=== PATIENT | male | born 1965 | race Caucasian/White ===

== ENCOUNTER 2023-11-16 10:46 | Outpatient (AMB) | payer OTHER, SELFPAY ==
--- NOTE | 2023-11-16 10:52 | MHC.OFFVIS ---
Vital Signs 11/16/23 10:54 Height 6 ft Weight 228 lb BMI 30.9 BP 119/80 Blood Pressure Location Lt brachial Position Sitting Pulse 56 Intake Visit Reasons: Colonoscopy Screening Intake Note: Patient new consult for 1st pre colonoscopy screening. Patient denies any GI issues. Energy Conservation Representative Required: No Accompanied by: Self / Same As Patient Allergies No Known Allergies Allergy (Verified 11/16/23 10:52) Medication List - Last Reconciled 11/16/23 by Anastasia Velazquez PA-C No Known Home Meds HPI Comments Details: A 58-year-old male referred for index screening colonoscopy- He has no known family history of GI cancer He has no GI complaints He has a good appetite, normal bowel pattern No cardiac or respiratory issues He takes no prescribed medications No nausea, vomiting, hematemesis, hematochezia fever chills PFSH Surgical History History of vasectomy Hx of removal of cyst Family History Mother Asthma Diabetes Social History (Updated 11/16/23 @ 11:32 by Anastasia Velazquez PA-C) Household Members: Family Household Members Other:: , adult children Unable to assess alcohol history related to: Unknown Comment: Social Patient Tobacco Use Status: Former Tobacco user Tobacco use type: Cigar Current occupational status: employed and retired Current occupation: Retired, works full-time Review of Systems Const Details: All systems reviewed and are negative Denies as per HPI, Denies chills, Denies daytime sleepiness, Denies difficulty sleeping, Denies excessive sweating, Denies fatigue, Denies fever(s), Denies frequent falls, Denies headache(s), Denies increased appetite, Denies lethargy, Denies malaise, Denies night sweats, Denies poor appetite, Denies snoring, Denies stops breathing during sleep, Denies weakness, Denies weight gain, Denies weight loss and Denies other ENT Denies headache(s) Resp Denies snoring Neuro Denies frequent falls, Denies headache(s) and Denies weakness Endo Denies excessive sweating and Denies fatigue Physical Exam Vital Signs: Last Vital Signs Pulse 56 11/16/23 10:54 BP 119/80 11/16/23 10:54 BMI result Body Mass Index 30.9 Very pleasant 58-year-old male alert and oriented no acute distress Anicteric Cardiovascular, regular rate rhythm no murmurs no Lungs, clear to auscultation bilaterally no wheezes rales or rhonchi Abdomen, soft positive bowel sounds no rebound guarding CVA Extremities without edema clubbing or cyanosis Skin without rash Assessment & Plan Assessment & Plan (1) Encounter for screening colonoscopy: Comment: Index screening colonoscopy Discussed procedure, rare risks, need for escort present Code(s): Z12.11 - Encounter for screening for malignant neoplasm of colon Category: Medical Plan: Index screening Plan Index screening colonoscopy with Dr. Salvatore Storade prep Orders: Orders Colonoscopy - GI Use Only Today Z12.11 - Encounter for screening for malignant neoplasm of colon Medications: New bisacodyl (Dulcolax (bisacodyl)) Day before procedure @ 12 noon Take 4 tablets by mouth followed by large glass of water 20 mg (4 x 5 mg) PO ONCE 1 day PRN 4 tabs 0RF colonoscopy prep Z12.11 - Encounter for screening for malignant neoplasm of colon polyethylene glycol 3350 (Miralax) Take as directed by mouth the day before your procedure. 238 grams PO ONCE 1 day PRN 238 grams 0RF laxative effect Patient Instructions: Index screening colonoscopy with Dr. Salvatore Bueno Gatorade prep, reviewed literature to begin Encouraged to call with questions or concerns Coding Level of Care Code New Pt Level 3 (29810) Diagnoses Encounter for screening colonoscopy Z12.11 Time Spent (min) 20
[2023-11-16 10:54] VITALS: BP 119/80; PULSE 56; BMI 30.9
== END 2023-11-16 11:34 | disposition home or self-care (01) ==
PROVIDERS: PCP Internal Medicine; Visit Provider Physician Assistant
DX: Z01.818 Encounter for other preprocedural examination (principal); Z12.11 Encounter for screening for malignant neoplasm of colon
CPT/HCPCS: S0285

== ENCOUNTER → 2023-11-16 10:46 | Outpatient (BNVA) | payer OTHER, SELFPAY | PROVIDERS: PCP Internal Medicine; Visit Provider Physician Assistant ==

== ENCOUNTER 2024-03-29 06:19 | Day surgery (SDC) | payer OTHER, SELFPAY ==
[2024-03-29 06:22] VITALS: BMI 31.2
[2024-03-29 06:43] VITALS: BP 130/92; PULSE 64; RESP 16; TEMP 36.2; O2SAT 94
[2024-03-29] MEDS: Lactated Ringers 1,000 ML 80 ML IVCONT (06:48)
--- NOTE | 2024-03-29 07:13 | P.CONAN_ITS ---
HPI - Anesthesia Eval Consult details Narrative: 58 yo M presenting for colonoscopy [facility] Active Problems Active Problems: All Active Problems Encounter for screening colonoscopy (Acute) Past Medical History Medical History (Updated 03/29/24 @ 06:49 by Cassie Busby RN) LUIS ANGEL on CPAP Family History Family History Mother Asthma Diabetes Family history of problems with anesthesia: No Surgical History Surgical History History of vasectomy Hx of removal of cyst History of Problems with Anesthesia: No Social History Social History (Updated 11/16/23 @ 11:32 by Anastasia Velazquez PA-C) Household Members: Family Household Members Other:: , adult children Unable to assess alcohol history related to: Unknown Comment: Social Patient Tobacco Use Status: Former Tobacco user Tobacco use type: Cigar Use of substances other than those prescribed or required for medical reasons: No Have you been hit, kicked, punched, or otherwise hurt by someone within the past year? If so, by whom?: No Are you DNR?: No Advance Directives: No Advance Directives Information Provided: Yes Recently lost weight without trying: No Nutrition Risks: No Nutritional Risk Poor oral hygiene: No Current occupational status: employed and retired Current occupation: Retired, works full-time Meds Allergies Allergy/AdvReac Type Severity Reaction Status Date / Time No Known Allergies Allergy Verified 03/29/24 06:28 Active Medications: Current Medications Lactated Ringer's (Lr) 1,000 mls @ 80 mls/hr IVCONT .[id number] [facility] Last Admin: 03/29/24 06:48 Dose: 80 mls/hr Home Medications ?Medication ?Instructions ?Recorded ?Confirmed ?Last Taken ?Type [place] 3 03/29/24 03/26/24 History Vitamin C 03/29/24 03/29/24 03/26/24 History Exam Exam Date and Time: 03/29/24 0710 Height,Weight and Vital Signs: Height 6 ft Weight 104.326 kg Last Vital Signs Temp 97.2 F 03/29/24 06:43 Pulse 64 03/29/24 06:43 Resp 16 03/29/24 06:43 BP 130/92 H 03/29/24 06:43 Pulse Ox 94 03/29/24 06:43 O2 Del Method Room Air 03/29/24 06:43 Airway Mallampati Class: I TM Dist: >3cm Neck ROM: Full Loose/Missing/Broken Teeth: No (patient denies any loose or broken teeth) Heart: S1S2 Lungs: CTAB Assessment and Plan Assessment Anesthesia Assessment: Anesthesia Plan Discussed and Chart Reviewed Final Anesthetic Review Family History of Problems with Anesthesia: No History of Problems with Anesthesia: No NPO: Yes ASA Class: I Final Preanesthetic Review: No Changes in Pt Med Stat, Meds/Allgs Chart Reviewed, Consent Obtained/Reviewed and Anes Risks/Benef Reviewed Patient Risk: Low Procedure Risk: Low Anesthetic Plan Anesthetic Plan: MAC: and Agree w/ Assess. and Plan Disposition: Standard PACU
--- NOTE | 2024-03-29 07:59 | MHC.SHP ---
Pre-Procedural Eval Section A - 24 Hr Update-Section A only Date of Service: 03/29/24 Section B - Complete if H&P > 30 days Chief Complaint: Encounter for screening for malignant neoplasm of Details of Present Illness: History of vasectomy Hx of removal of cyst Family History Mother Asthma Diabetes Allergies: Allergies Allergy/AdvReac Type Severity Reaction Status Date / Time No Known Allergies Allergy Verified 03/29/24 06:28 Review of Systems Review of Systems Comment: Ten point ROS negative Exam Exam Comment: Gen appear: No acute distress HEENT: no icterus Chest: No overt resp distress Abd: soft, nontender, nondistended Psych: Stable affect, answering questions appropriately Neuro: A/Ox3 noted to move all extremities spontaneously Ext: no peripheral edema Plan Diagnosis/Plan: Unchanged I have reviewed the history and physical and performed a pertinent physical examination on my patient. No changes have occurred unless specified. Time Spent With Patient Time: Total time managing care of this patient today ____ minutes.
--- NOTE | 2024-03-29 08:29 | P.OPN-COLO_ITS ---
Colonoscopy Operative Note Operative Note Date of Service: 03/29/24 Narrative: Procedure: Colonoscopy Indication: Screening Endoscopist: Nupur Chase MD Anesthesia Provider: Kehinde Kingsley CRNA Anesthesia type: MAC Instrument: Olympus [id number]-[id number] Consent: Indication, risks vs benefits, and alternatives were discussed with the patient who gave written informed consent to proceed. EKG, pulse, pulse oximetry and blood pressure were monitored throughout the procedure. Please see anesthesia flowsheet. Procedure: The patient was brought to the procedure room and placed in the left lateral decubitus position. IV medications were administered by the anesthesia provider in attendance. A digital rectal exam was performed which was normal. A distal attachment cap was affixed to the tip of the colonoscope which was then inserted through the anus and advanced through the colon to the cecum at 85 cm,and terminal ileum. Appendiceal orifice and ileocecal valve were identified. Mucosa was carefully examined under high definition white light as the instrument was slowly withdrawn in a retrograde panoramic fashion. Retroflexion was performed in ascending colon and rectum. The procedure was not difficult. There were no immediate obvious complications. The quality of the prep was BBPS: 2+3+2 = adequate Withdrawal time 13 minutes. Limitations: No limitations. Findings: Mucosa: Normal to cecum and terminal ileum. Protruding lesions: * 1 sessile polyp of size 2 mm in descending colon. Cold snare polypectomy was performed. The polyp was completely removed and retrieved. * Medium internal hemorrhoids without stigmata of recent bleeding. Impression: 1. Normal colon and terminal mucosa 2. Total of 1 polyp removed f 3. Internal hemorrhoids Recommendations: - Follow path results. - Repeat colonoscopy in 7-10 years if polyp is an adenoma.
[2024-03-29 08:32] VITALS: BP 109/65; PULSE 60; RESP 12; TEMP 36.1; O2SAT 93
[2024-03-29 08:52] VITALS: BP 119/72; PULSE 50; RESP 20; TEMP 36.6; O2SAT 98
== END 2024-03-29 09:12 | disposition home or self-care (01) ==
PROVIDERS: PCP Internal Medicine; Visit Provider Internal Medicine
PROC: 0DJD8ZZ Inspection of Lower Intestinal Tract, Via Natural or Artificial Opening Endoscopic (ICD-10-PCS; CPT 45378; principal; 2024-03-29 07:30)
DX: Z12.11 Encounter for screening for malignant neoplasm of colon (principal); D12.4 Benign neoplasm of descending colon; K64.8 Other hemorrhoids; G47.33 Obstructive sleep apnea (adult) (pediatric); Z99.89 Dependence on other enabling machines and devices; Z79.899 Other long term (current) drug therapy; Z98.52 Vasectomy status; Z87.891 Personal history of nicotine dependence
CPT/HCPCS: 45385; 88305; J2704

== ENCOUNTER → 2024-03-29 06:19 | Outpatient (BNV) | payer OTHER, SELFPAY | PROVIDERS: PCP Internal Medicine; Visit Provider Internal Medicine | DX: Z12.11 Encounter for screening for malignant neoplasm of colon (principal); D12.4 Benign neoplasm of descending colon; K64.8 Other hemorrhoids | CPT/HCPCS: 45385 ==

== ENCOUNTER → 2025-01-08 10:50 | Outpatient (BNV) | payer OTHER, SELFPAY | PROVIDERS: PCP Internal Medicine; Referring Provider Internal Medicine; Visit Provider Internal Medicine | DX: D72.819 Decreased white blood cell count, unspecified (principal) | CPT/HCPCS: 99204 ==

== ENCOUNTER 2025-01-14 12:40 | Outpatient (AMB) | payer OTHER, SELFPAY ==
--- NOTE | 2025-01-14 12:55 | A.OFFVIS_ITS ---
Vital Signs 01/14/25 13:02 Height 6 ft Weight 219 lb 5.759 oz BMI 29.7 BP 128/80 Blood Pressure Location Rt brachial Position Sitting Pulse 64 Pulse Source Pulse Oximeter Pulse Oximetry (%) 96 Oxygen Delivery Method Room Air Intake Visit Reasons: Obstructive sleep apnea Allergies No Known Allergies Allergy (Verified 01/14/25 13:06) HPI HPI Obstructive sleep apnea: Details: Kehinde is a pleasant 59 year old male, former minimal cigar smoker, quit 20+ years ago with underlying severe LUIS ANGEL. He was referred by PCP for management of LUIS ANGEL. He was previously under the care of [facility] sleep medicine but his provider retired and was never established with another provider. His last PSG was 09/2019 which revealed AHI 35.3, with mild nocturnal hypoxemia, <88% 6 minutes, lowest 81%. Recommendations were made for CPAP therapy, APAP mode with pressures 8-14 cmH20, with a nasal mask, which he has been using consistently with good effect since. He does report more noticeable leaking, questioning proper pressures, as he has lost 20+ lbs since his last sleep study. At this time, he denies any respiratory symptoms. [facility] Medical History (Updated 01/14/25 @ 12:57 by Cristin Jackson NP) Toe fracture, right Finger fracture, right LUIS ANGEL on CPAP Surgical History (Updated 01/08/25 @ 11:29 by Michelle Campbell MD) Status post right knee replacement History of vasectomy Hx of removal of cyst Family History Mother Asthma Diabetes Social History Household Members: Family Household Members Other:: , adult children Unable to assess alcohol history related to: Unknown Comment: Social Patient Tobacco Use Status: Former Tobacco user Tobacco use type: Cigar service: Yes Current occupational status: employed and retired Current occupation: Retired, works full-time Review of Systems Const Denies chills, Denies excessive sweating, Denies fever(s), Denies headache(s) and Denies night sweats Eyes Denies dry eyes, Denies irritation and Denies itchy eyes ENT Reports Normal hearing present, Denies headache(s), Denies nasal congestion, Denies nasal discharge, Denies post nasal drip and Denies sore throat Card Denies chest pain, Denies chest pain at rest, Denies chest pain with activity, Denies claudication, Denies leg edema, Denies dyspnea, Denies dyspnea on exertion, Denies orthopnea and Denies paroxysmal nocturnal dyspnea Resp Denies chest congestion, Denies cough, Denies excessive phlegm production, Denies pain on inspiration, Denies pain with cough, Denies dyspnea, Denies d yspnea on exertion, Denies stridor and Denies wheezing Musc Denies myalgias Neuro Reports Normal hearing present and Denies headache(s) Endo Denies excessive sweating Hernan/Lymph Denies lymphadenopathy Aller/Immun Denies itchy eyes, Denies seasonal rhinorrhea and Denies wheezing Physical Exam Vital Signs: Last Vital Signs Pulse 64 01/14/25 13:02 BP 128/80 01/14/25 13:02 Pulse Ox 96 01/14/25 13:02 Oxygen Delivery Method Room Air 01/14/25 13:02 BMI result Body Mass Index 29.7 Const General: cooperative, healthy appearing, comfortable, no acute distress, well developed and alert Orientation/consciousness: patient oriented x3 Limitations: no limitations HEENT Head: Yes normal to inspection, Yes normocephalic and Yes atraumatic Ears: hearing grossly normal bilaterally and external ears normal Eyes General: appearance normal, both eyes and all related structures Eyelids: Yes eyelids normal Sclerae: sclerae normal EOM: EOMs intact bilaterally Neck Neck: Yes normal visual inspection and Yes no lymphadenopathy Lymphatic: no lymphadenopathy noted Chest Chest palpation & inspection: normal inspection of the chest Resp Effort & Inspection: normal respiratory effort, able to speak in complete sentences, no audible wheezes, no cough, no stridor, not tachypneic, no tripod positioning and no use of accessory muscles Auscultation: clear to auscultation bilaterally Cardio Jugular venous distension: no JVD Rate: regular rate Rhythm: regular rhythm Skin Other: warm, dry General skin exam: no rashes or lesions noted Neuro General: patient oriented x3 Cranial nerves: Yes Normal hearing present Cognition (Neuro): normal cognition Gait exam (Neuro): Normal gait present Extrem General: Yes normal to inspection, Yes capillary refill normal, Yes no clubbing, cyanosis or edema and Yes no pedal edema Psych Appearance: grossly normal and well kempt Speech and movement: Normal speech and movement present and Clear speech present Affect: normal affect Attitude: cooperative Thought process: Normal thought process present Thought content: Normal thought content present Insight: Good insight present (Psych) Judgement: Good judgement present (Psych) Assessment & Plan Assessment & Plan (1) Severe obstructive sleep apnea: Code(s): G47.33 - Obstructive sleep apnea (adult) (pediatric) Category: Medical Plan Kehinde presents for management of LUIS ANGEL. Previously noted to be severe, however has lost 20+lbs since prior sleep study. Will repeat sleep study to assess severity of sleep apnea. May need to consider in lab titration study however patient would like to defer at this time. All questions were answered and patient is in agreement of plan. Will follow up to review results or sooner if needed. Orders: Orders RT home sleep study Today G47.33 - Obstructive sleep apnea (adult) (pediatric) Coding Level of Care Code New Pt Level 3 (50509) Diagnoses Severe obstructive sleep apnea G47.33
[2025-01-14 13:02] VITALS: BP 128/80; PULSE 64; O2SAT 96; BMI 29.7
--- OUTSIDE RECORDS SUMMARY | 2025-01-14 14:00 | XMS_ITS | Clinical Summary ---
Author Organization [facility] Address [address] [place] [address] Care Team Providers Care Retail Bakery Manager Name Role Phone Unavailable Primary Care Provider Unavailabl e Social History Tobacco Use Types Packs/Day Years Used Date Smoking Tobacco: Never Assessed Sex and Gender Information Value Date Recorded Sex Assigned at Not on file Legal Sex Male 4:47 PM EDT Gender Identity Not on file Sexual Orientation Not on file Plan of Treatment Health Maintenance Due Date Last Done Comments Hepatitis C Screening 1965 DTaP/Tdap/Td (1 - Tdap) 1985 Hep B (1 of 3 - 19+ 3-dose series) 1986 Pneumococcal 50+ years (1 of 1 - PCV) 2017 Zoster (Shingrix) (1 of 2) 2017 COVID-19 Vaccine ( - 2023-2 5 season) 2024 Influenza (Season Ended) 2025 HPV Vaccine Aged Out No longer eligi ble based on patient's age to complete this topic Hep A Aged Out No longer eligi ble based on patient's age to complete this topic Hib Aged Out No longer eligi ble based on patient's age to complete this topic Meningococcal ACWY Aged Out No longer eligible based on patient's age to complete this topic
== END 2025-01-14 13:31 | disposition home or self-care (01) ==
LOC: HO.HPS 12:41
PROVIDERS: PCP Internal Medicine; Visit Provider Nurse Practitioner Family
DX: G47.33 Obstructive sleep apnea (adult) (pediatric) (principal)
CPT/HCPCS: 99203

== ENCOUNTER → 2025-04-09 10:05 | Outpatient (REF) | payer OTHER, SELFPAY ==
--- OUTSIDE RECORDS SUMMARY | 2025-04-09 13:10 | XMS_ITS | Clinical Summary ---
Author Organization [facility] Address [address] [place] [address] Phone Care Team Providers Care Day Light Relief Operator Name Role Phone Martinez Dickens Primary Care Provider [phone] Social History Tobacco Use Types Packs/Day Years Used Date Smoking Tobacco: Never Assessed Sex and Gender Information Value Date Recorded Sex Assigned at Not on file Legal Sex Male 4:18 AM EST Gender Identity Not on file Sexual Orientation Not on file Plan of Treatment Health Maintenance Due Date Last Done Comments DTaP,Tdap,and Td Vaccines (1 - Tdap) 1986 Hepatitis B Vaccines (1 of 3 - 19+ 3-dose series) 1986 Pneumococcal Vaccine: 50+ Ye ars (1 of 1 - PCV) 2017 Zoster Vaccines (1 of 2) 2017 Depression Screening 07/25/2024 Colorectal Cancer Screening: Colonoscopy 11/16/2024 HIV Screening 11/16/2024 Hepatitis C Screening 11/16/2024 Social Influencers of Health Screening 11/16/2024 COVID-19 Vaccine (1 - 2023-2 5 season) 2025 Influenza Vaccine (#1) 2025 Cholesterol Screening (Lipid Panel) 11/16/2029 11/16/2024 HIB Vaccines Aged Out No longer eligi ble based on patient's age to complete this topic HPV Vaccines Aged Out No longer eligi ble based on patient's age to complete this topic Hepatitis A Vaccines Aged Out No long er eligible based on patient's age to complete this topic IPV Vaccines Aged Out No longer eligi ble based on patient's age to complete this topic MMR Vaccines Aged Out No longer eligi ble based on patient's age to complete this topic Meningococcal ACWY Vaccine Aged Out N o longer eligible based on patient's age to complete this topic Meningococcal B Vaccine Aged Out No l onger eligible based on patient's age to complete this topic RSV Immunization Patients Un gerson 20 months Aged Out No longer eligible b ased on patient's age to complete this topic Varicella Vaccines Aged Out No longer eligible based on patient's age to complete this topic Procedures Procedure Name Priority Date/Time Associated Diagnosis Comments LIPID PANEL WITH REFLEX TO DIRECT LDL Routine 11/16/2024 8:39 AM EDT Routine general medical examination at a health care facility Impaired fasting glucose Screening for ischemic heart disease Screening for thyroid disorder LUIS ANGEL (obstructive sleep apnea) HLD (hyperlipidemia) from Last 3 Months or Most Recently Relevant to Health Maintenance Results * Lipid panel with reflex to direct LDL (11/16/2024 8:39 AM EDT) Cholesterol 152 0 - 200 mg/dL LAB CHEMISTRY METHOD 11/16/2024 12:20 PM EDT [facility] Triglycerides 57 0 - 150 mg/dL LAB CHEMISTRY METHOD 11/16/2024 12:20 PM T [facility] HDL 51 >=40 mg/dL LAB CHEMISTRY METHOD 11/16/2024 12:[address] [facility] LDL Calculated 90 0 - 100 mg/dL LAB CHEMISTRY METHOD 11/16/2024 12:[address] [facility] VLDL Cholesterol Misha 11.4 mg/dL LAB CHEMISTRY METHOD 11/16/2024 12:20 PM T [facility] Non HDL Chol. (LDL+VLDL) 101 <145 mg/dL LAB CHEMISTRY METHOD 11/16/2024 12:20 PM T [facility] Chol/HDL Ratio 3.0 0.0 - 4.4 LAB CHEMISTRY METHOD 11/16/2024 12:[address] [facility] Blood Venous blood specimen / Unknown Venipuncture / Unknown 11/16/2024 8:39 AM EDT 11/16/2024 8:39 AM EDT us Geiger Dalton RESIDENT CARE COORDINATOR LAB BLOOD ORDERABLES Final Resul t [facility] [address] [place] [address], from Last 3 Months or Most Recently Relevant to Health Maintenance Insurance [facility] Care Teams Day Light Relief Operator Relationship Specialty Start Date End Date Martinez Dickens DO [address] [place] [phone] PCP - General Internal Medicine 09/22/20
--- OUTSIDE RECORDS SUMMARY | 2025-04-09 13:10 | XMS_ITS | Clinical Summary ---
Author Organization [facility] Address [address] [place] [address] Care Team Providers Care Associate Theatre Professor Name Role Phone Unavailable Primary Care Provider [...] COVID-19 Vaccine ( - 2023-2 5 season) 2025 Influenza (#1) 2025 HPV Vaccine (No Doses Required) Completed Hep A Aged Out No longer eligi ble based on patient's age to complete this topic Hib Aged Out No longer eligi ble based on patient's age to complete this topic Meningococcal ACWY Aged Out No longer eligible based on patient's age to complete this topic
== END ==
LOC: HO.SL 10:05
PROVIDERS: PCP Internal Medicine; Visit Provider Nurse Practitioner Family
DX: G47.33 Obstructive sleep apnea (adult) (pediatric) (principal); R06.83 Snoring
CPT/HCPCS: 95806

== ENCOUNTER → 2025-04-09 10:11 | Outpatient (BNV) | payer OTHER, SELFPAY | PROVIDERS: PCP Internal Medicine; Visit Provider Internal Medicine | DX: R06.83 Snoring (principal) | CPT/HCPCS: 95806 ==

== ENCOUNTER 2025-04-15 15:43 | Outpatient (AMB) | payer OTHER, SELFPAY ==
[2025-04-15 15:47] VITALS: BP 122/74; PULSE 88; O2SAT 95; BMI 30.3
--- NOTE | 2025-04-15 15:47 | A.OFFVIS_ITS ---
Vital Signs 04/15/25 15:47 Height 6 ft Weight 223 lb 12.307 oz BMI 30.3 BP 122/74 Blood Pressure Location Rt brachial Position Sitting Pulse 88 Pulse Source Pulse Oximeter Pulse Oximetry (%) 95 Oxygen Delivery Method Room Air Intake Visit Reasons: Obstructive sleep apnea Allergies No Known Allergies Allergy (Verified 04/15/25 15:49) HPI HPI Obstructive sleep apnea: Details: Kehinde is a pleasant 59 year old male, former minimal cigar smoker, quit 20+ years ago with underlying severe LUIS ANGEL. He was initially referred by PCP for management of LUIS ANGEL. He was previously under the care of [facility] sleep medicine but his provider retired and was never established with another provider. His last PSG was 09/2019 which revealed AHI 35.3, with mild nocturnal hypoxemia, <88% 6 minutes, lowest 81%. Recommendations were made for CPAP therapy, APAP mode with pressures 8-14 cmH20, with a nasal mask, which he has been using consistently and benefitting from therapy. He does report more noticeable leaking, questioning proper pressures, as he has lost 20+ lbs since his last sleep study. At this time, he denies any respiratory symptoms. [facility]. Today he presents to review home sleep study. [facility] Medical History (Updated 04/17/25 @ 09:19 by Cristin Jackson NP) Toe fracture, right Finger fracture, right LUIS ANGEL on CPAP Surgical History (Updated 01/08/25 @ 11:29 by Michelle Campbell MD) Status post right knee replacement History of vasectomy Hx of removal of cyst Family History Mother Asthma Diabetes Social History Household Members: Family Household Members Other:: , adult children Comment: Social Patient Tobacco Use Status: Former Tobacco user Tobacco use type: Cigar service: Yes Current occupational status: employed and retired Current occupation: Retired, works full-time Review of Systems Const Denies chills, Denies excessive sweating, Denies fever(s), Denies headache(s) and Denies night sweats Eyes Denies dry eyes, Denies irritation and Denies itchy eyes ENT Reports Normal hearing present, Denies headache(s), Denies nasal congestion, Denies nasal discharge, Denies post nasal drip and Denies sore throat Card Denies chest pain, Denies chest pain at rest, Denies chest pain with activity, Denies claudication, Denies leg edema, Denies dyspnea, Denies dyspnea on exertion, Denies orthopnea and Denies paroxysmal nocturnal dyspnea Resp Denies chest congestion, Denies cough, Denies excessive phlegm production, Denies pain on inspiration, Denies pain with cough, Denies dyspnea, Denies dyspnea on exertion, Denies stridor and Denies wheezing Musc Denies myalgias Neuro Reports Normal hearing present and Denies headache(s) Endo Denies excessive sweating Hernan/Lymph Denies lymphadenopathy Aller/Immun Denies itchy eyes, Denies seasonal rhinorrhea and Denies wheezing Physical Exam Vital Signs: Last Vital Signs Pulse 88 04/15/25 15:47 BP 122/74 04/15/25 15:47 Pulse Ox 95 04/15/25 15:47 Oxygen Delivery Method Room Air 04/15/25 15:47 BMI result Body Mass Index 30.3 Const General: cooperative, healthy appearing, comfortable, no acute distress, well developed and alert Nutritional Appearance: obese Orientation/consciousness: patient oriented x3 Limitations: no limitations HEENT Head: Yes normal to inspection, Yes normocephalic and Yes atraumatic Ears: hearing grossly normal bilaterally and external ears normal Eyes General: appearance normal, both eyes and all related structures Eyelids: Yes eyelids normal Sclerae: sclerae normal EOM: EOMs intact bilaterally Neck Neck: Yes normal visual inspection and Yes no lymphadenopathy Lymphatic: no lymphadenopathy noted Chest Chest palpation & inspection: normal inspection of the chest Resp Effort & Inspection: normal respiratory effort, able to speak in complete sentences, no audible wheezes, no cough, no stridor, not tachypneic, no tripod positioning and no use of accessory muscles Auscultation: clear to auscultation bilaterally Cardio Jugular venous distension: no JVD Rate: regular rate Rhythm: regular rhythm Skin Other: warm, dry General skin exam: no rashes or lesions noted Neuro General: patient oriented x3 Cranial nerves: Yes Normal hearing present Cognition (Neuro): normal cognition Gait exam (Neuro): Normal gait present Extrem General: Yes normal to inspection, Yes capillary refill normal, Yes no clubbing, cyanosis or edema and Yes no pedal edema Psych Appearance: grossly normal and well kempt Speech and movement: Normal speech and movement present and Clear speech present Affect: normal affect Attitude: cooperative Thought process: Normal thought process present Thought content: Normal thought content present Insight: Good insight present (Psych) Judgement: Good judgement present (Psych) Assessment & Plan Assessment & Plan (1) Obstructive sleep apnea: Code(s): G47.33 - Obstructive sleep apnea (adult) (pediatric) Category: Medical Plan Reviewed home sleep study which revealed borderline LUIS ANGEL AHI 4.7 however when supine AHI 14, average oxygen saturation 95%, lowest 87%, no significant nocturnal hypoxemia noted. Given that patient reports trialing positional therapy in the past with no success and continues with AHI 14 in supine positioning in addition to significant benefit with use of CPAP therapy, will send order for replacement machine to [facility]. Will send prescription for CPAP therapy in APAP mode with pressures 6-16 cm H20. He would also like to discuss obtaining a portable device with [facility], specifically the [employer]med [employer] CPAP Machine as he travels frequently. All questions were answered and patient is in agreement of plan. Will follow up in the Spring when patient returns from traveling or sooner if needed. Coding Level of Care Code Est Pt Level 4 (66885) Diagnoses Obstructive sleep apnea G47.33
== END 2025-04-15 16:17 | disposition home or self-care (01) ==
LOC: HO.HPS 15:44
PROVIDERS: PCP Internal Medicine; Visit Provider Nurse Practitioner Family
DX: G47.33 Obstructive sleep apnea (adult) (pediatric) (principal)
CPT/HCPCS: 99214